=== PATIENT | male | born 1990 ===

== ENCOUNTER 2017-08-28 10:36 | Emergency (ER) | payer OTHER ==
[~2017-08-28] VITALS: Ht 172.7 cm; Wt 81.6 kg
[2017-08-29] MEDS ORDERED: SINGULAIR 10MG10 MG PO (05:56)
== END 2017-08-29 06:14 | disposition home or self-care (01) ==
LOC: ER 10:36
DX: J45.998 Other asthma (principal); J98.8 Other specified respiratory disorders